=== PATIENT | male | born 1980 | race African-American/Black ===

== ENCOUNTER 2019-02-27 20:08 | Emergency (ER) | payer OTHER ==
[2019-02-27 20:40] VITALS: BP 121/65; PULSE 78; TEMP 98.5; BMI 31.3
[2019-02-27] MEDS ORDERED: ACETAMINOPHEN 325 MG TABLET (FP) PO ONE (21:15)
[2019-02-27] MEDS ORDERED: ACETAMINOPHEN 325 MG TABLET (FP) ONE (21:18)
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
== END 2019-02-27 23:36 | disposition home or self-care (01) ==
LOC: JER 20:08
DX: M54.2 Cervicalgia (principal); M54.6 Pain in thoracic spine; M79.674 Pain in right toe(s); V49.59XA Passenger injured in collision with other motor vehicles in traffic accident, initial encounter; Y92.414 Local residential or business street as the place of occurrence of the external cause; Y93.89 Activity, other specified; Y99.8 Other external cause status
CPT/HCPCS: 70450-TC; 72125-TC; 72128-TC; 73660-TC-FY; 99282-25

== ENCOUNTER 2021-01-08 10:08 | Emergency (ER) | payer OTHER ==
[2021-01-08 10:24] VITALS: BP 139/67; PULSE 71; TEMP 98.3; BMI 35.9
[2021-01-08] MEDS ORDERED: ALBUTEROL SO4 2.5/IPRATROPIUM 0.5 INH SOL 3 ML VIAL.NEB. NEB ONE ×2 (11:02→11:48)
== END 2021-01-08 12:30 | disposition home or self-care (01) ==
LOC: JER 10:08
DX: R05.9 Cough, unspecified (principal)
CPT/HCPCS: 71046-TC-FY; 99284-25; C9803; U0003; U0005